=== PATIENT | female | born 1985 ===

== ENCOUNTER 2021-04-23 09:51 | Inpatient (IN) | payer BC ==
[~2021-04-23 09:51] MED LIST: Bupivacaine 0.25% 10 ML SDV ONE; ePHEDrine 50 MG/ML SDV ONE
[2021-04-23] MEDS ORDERED: ePHEDrine 50 MG/ML SDV IVPUSH PRN (11:11)
[2021-04-23] MEDS ORDERED: Ondansetron 4 MG/2 ML SDV IVPUSH PRN (11:11)
[2021-04-23] MEDS ORDERED: fentaNYL 100 MCG/2 ML SDV EPIDUR PRN (11:11)
[2021-04-23] MEDS ORDERED: Nalbuphine 10 MG/1 ML Vial IVPUSH PRN (11:13)
[2021-04-23] MEDS ORDERED: Oxytocin/Lactated Ringers 10 UNIT/1,000 ML BAG IV SCH ×2 (11:15)
[2021-04-23] MEDS ORDERED: Bupivacaine/fentaNYL/NS 100 ML Bag EPIDUR SCH (11:15)
[2021-04-23] MEDS ORDERED: Ampicillin 2 GM in Sodium Chloride 0.9% 100 ML IV ONE (12:00)
[2021-04-23] MEDS: Lactated Ringers 1,000 ML IV SCH ×3 (12:32→16:05)
[2021-04-23] MEDS: Ampicillin 1 GM in Sodium Chloride 0.9% 100 ML IV SCH (15:43)
[2021-04-23] MEDS ORDERED: Acetaminophen 325 MG Tab PO PRN (20:10)
[2021-04-23] MEDS ORDERED: Benzocaine/Menthol 20%-0.5% Spray 78 GM Cannister TOP PRN (20:10)
[2021-04-23] MEDS ORDERED: Witch Hazel Medicated Pads 40/Jar TOP PRN (20:10)
[2021-04-23] MEDS ORDERED: Sodium Chloride 0.9% 10 ML Syringe FLUSH SCH (21:00)
[2021-04-24] MEDS: Ampicillin 1 GM in Sodium Chloride 0.9% 100 ML IV SCH (01:21)
[2021-04-24] MEDS: Ibuprofen 600 MG Tab PO PRN ×2 (04:08→14:40)
[2021-04-25 09:02] VITALS: BP 120/71; PULSE 74
== END 2021-04-25 16:00 | disposition home or self-care (01) | DRG 560 ==
LOC: JD.OBCHECK 09:51 → JD.OB 09:53 → JD.OBCHECK 11:13 → OBSVTOIN 17:45 → JD.OB 04-24 00:51
PROVIDERS: ADMIT Obstetrics & Gynecology; ATTEND Obstetrics & Gynecology
PROC: 10D07Z6 Extraction of Products of Conception, Vacuum, Via Natural or Artificial Opening (ICD-10-PCS; principal; 2021-04-23)
PROC: 3E0R3BZ Introduction of Anesthetic Agent into Spinal Canal, Percutaneous Approach (ICD-10-PCS; 2021-04-23)
PROC: 00HU33Z Insertion of Infusion Device into Spinal Canal, Percutaneous Approach (ICD-10-PCS; 2021-04-23)
DX: O99.344 Other mental disorders complicating childbirth (principal); Z37.0 Single live birth; F41.9 Anxiety disorder, unspecified; O99.824 Streptococcus B carrier state complicating childbirth; F32.A Depression, unspecified; O76 Abnormality in fetal heart rate and rhythm complicating labor and delivery; Z3A.38 38 weeks gestation of pregnancy; Z86.16 Personal history of COVID-19
CPT/HCPCS: 01967; 36415; 51702; 59025; 59409; 84112; 85025; 86592; A9270-GY; J0290; J2590; J3010; J3490; J7120